=== PATIENT | female | born 1940 | race African-American/Black ===

== ENCOUNTER 2017-06-15 08:29 | Outpatient (CLI) | payer OTHER ==
[~2017-06-15 08:29] MED LIST: ADULT ASPIRIN81 MG PO; CATAPRES0.2 MG PO; ENALAPRIL MALEA10 MG NGT; GLIPIZIDE10 MG PO; HYDROCHLOROTHIA25 MG PO; PENTOXIFYLLINE400 MG PO; SYNTHROID175 MCG PO
== END 2017-06-15 14:06 | disposition home or self-care (01) ==
LOC: SONOGRAMA 08:29 → MAMO-SONO 09:45 → SONOGRAMA 14:06
DX: M75.51 Bursitis of right shoulder (principal); M75.81 Other shoulder lesions, right shoulder